=== PATIENT | female | born 1980 | race Caucasian/White ===

== ENCOUNTER 2023-08-10 13:49 | Outpatient (CLI) | payer OTHER | END 2023-08-10 13:50 | disposition home or self-care (01) | LOC: BICMAMMO 13:49 | PROVIDERS: ATTEND Nurse Practitioner Family | DX: Z12.31 Encounter for screening mammogram for malignant neoplasm of breast (principal); Z80.3 Family history of malignant neoplasm of breast; Z98.82 Breast implant status; Z85.850 Personal history of malignant neoplasm of thyroid | CPT/HCPCS: 77063; 77067 ==